=== PATIENT | male | born 1970 | race Hispanic/Latino ===

== ENCOUNTER 2017-05-29 19:55 | Inpatient (IN) | payer OTHER ==
[2017-05-29 20:31] LABS: Basophils % (Auto) 0.6 % (0.0-1.8); Eosinophils % (Auto) 1.3 % (0.0-4.3); Hematocrit 40.7 % (35.5-45.6); Hemoglobin 14.3 gm/dl (11.8-15.2); Mean Corpuscular HGB Conc 35 % (32-34); Mean Corpuscular Hemoglobin 31 pg (28-32); Mean Corpuscular Volume 88 fl (84-94); Platelet Count 226 K/mm3 (140-440); Red Blood Count 4.64 M/mm3 (3.65-5.03); White Blood Count 7.3 K/mm3 (4.5-11.0)
[2017-05-29] MEDS ORDERED: NITROSTAT SL ONE (20:50)
[2017-05-29] MEDS ORDERED: ZOFRAN IV ONE (20:51)
[2017-05-29] MEDS ORDERED: DILAUDID IV ONE (20:51)
[2017-05-29 20:52] LABS: Anion Gap 16 mmol/L; BUN/Creatinine Ratio 13.63; Blood Urea Nitrogen 15 mg/dL (9-20); Calcium 9.1 mg/dL (8.4-10.2); Carbon Dioxide 30 mmol/L (22-30); Chloride 102.7 mmol/L (98-107); Glucose 111 mg/dL (75-100); Potassium 3.3 mmol/L (3.6-5.0); Sodium 145 mmol/L (137-145)
--- NOTE | 2017-05-29 20:58 | XRay Report ---
FINAL REPORT EXAM: XR CHEST 1V AP HISTORY: cp COMPARISON: None available. FINDINGS: Frontal view(s) of the chest obtained. Cardiac silhouette within normal limits. No gross consolidation or effusion. No pneumothorax. IMPRESSION: No grossly acute findings.
[2017-05-29] MEDS ORDERED: NACL ONE (21:06)
[2017-05-29] MEDS: ASPIRIN PO SCH (21:43)
--- NOTE | 2017-05-29 21:46 | Cat Scan Report ---
FINAL REPORT EXAM: CT ANGIO CHEST HISTORY: chest pain COMPARISON: Chest x-ray from the same date. TECHNIQUE: Contiguous axial images were obtained. Additional sagittal and coronal reformatted images were obtained. Administration of IV contrast given per institution protocol. Images submitted for interpretation. 100 cc Omnipaque 350. Max intensity projection images. FINDINGS: Heart normal in size. Thoracic aorta normal in caliber. Mild calcification aortic arch. No dissection or rupture. No pulmonary embolus. No pathologically enlarged intrathoracic or axillary lymph nodes. Tracheobronchial tree is patent. Minimal linear scarring or atelectasis at the lung bases. Otherwise, no focal consolidation or effusion. Small hiatal hernia. Mild wall thickening the distal esophagus which may relate to its decompressed state. Mild degenerative changes of the thoracic spine. IMPRESSION: No pulmonary embolus. Minimal linear atelectasis or scarring at the lung bases. No dense consolidation or effusion. Small hiatal hernia. Mild wall thickening the distal esophagus which may relate to its decompressed state. Mild esophagitis could have a similar appearance.
--- NOTE | 2017-05-29 22:15 | Emergency Department Report ---
HPI - General Chief Complaint: Chest Pain Time Seen by Provider: 05/29/17 20:27 - HPI HPI: 46-year-old male presents to the ED with chest pain chest pain, onset 2 hour prior to evaluation while at rest, Location: mid chest Radiation: none, Severity now (0-10): 10, Severity at worst (0-10): 10 Duration : 5 minutes characterized as: Pressure. The pain is relieved with nothing, Patient denies exertional pain, patient denies pleuritic pain. Patient denies associated symptoms, such as nausea/vomiting, no diaphoresis, no shortness of breath. She would history of complicated medical issues such as pulmonary embolism, CAD status post interventions. ED Past Medical Hx - Past Medical History Hx Hypertension: Yes Hx Heart Attack/AMI: Yes Additional medical history: PE - Surgical History Past Surgical History?: No Additional Surgical History: elbow - Social History Smoking Status: Never Smoker Substance Use Type: None - Medications Home Medications: Home Medications Medication Instructions Recorded Confirmed Last Taken Type Aspirin [Aspirin TAB] 325 mg PO QDAY 05/29/17 05/29/17 Unknown History Chlorthalidone [Thalitone] 25 mg PO DAILY 05/29/17 05/29/17 Unknown History Metoprolol [Lopressor TAB] 50 mg PO DAILY 05/29/17 05/29/17 Unknown History NIFEdipine XL [Procardia Xl] 90 mg PO QDAY 05/29/17 05/29/17 Unknown History ED Review of Systems ROS: Stated complaint: CHEST PAIN Other details as noted in HPI Comment: All other systems reviewed and negative ENT: denies: ear pain, throat pain Respiratory: denies: cough, shortness of breath, wheezing Cardiovascular: chest pain Endocrine: no symptoms reported Gastrointestinal: as per HPI Physical Exam - Physical Exam Vital Signs: Vital Signs 05/29/17 05/29/17 05/29/17 20:04 20:37 20:38 Temperature 98.2 F 98.2 F Pulse Rate 76 64 Respiratory 22 20 20 Rate Blood Pressure 214/122 Blood Pressure 177/93 [Right] O2 Sat by Pulse 99 100 100 Oximetry 05/29/17 05/29/17 21:42 21:49 Temperature Pulse Rate 65 Respiratory 20 Rate Blood Pressure 177/93 Blood Pressure [Right] O2 Sat by Pulse Oximetry Physical Exam: Physical Exam: - General Limitations: No Limitations General appearance: alert, in no apparent distress. - Head Head exam: Present: atraumatic, normocephalic - Eye Eye exam: Present: normal appearance - ENT ENT exam: Present: mucous membranes moist - Neck Neck exam: Present: normal inspection - Respiratory Respiratory exam: Present: normal lung sounds bilaterally. Absent: respiratory distress - Cardiovascular Cardiovascular Exam: Present: normal rhythm, normal rate. Absent: systolic murmur, diastolic murmur, rubs, gallop - GI/Abdominal GI/Abdominal exam: Present: soft, normal bowel sounds - Extremities Exam Extremities exam: Present: normal inspection - Back Exam Back exam: Present: normal inspection - Neurological Exam Neurological exam: Present: alert, oriented X3 - Psychiatric Psychiatric exam: normal affect and mood - Skin Skin exam: Present: warm, dry, intact, normal color. Absent: rash ED Course Vital Signs 05/29/17 05/29/17 05/29/17 20:04 20:37 20:38 Temperature 98.2 F 98.2 F Pulse Rate 76 64 Respiratory 22 20 20 Rate Blood Pressure 214/122 Blood Pressure 177/93 [Right] O2 Sat by Pulse 99 100 100 Oximetry 05/29/17 05/29/17 21:42 21:49 Temperature Pulse Rate 65 Respiratory 20 Rate Blood Pressure 177/93 Blood Pressure [Right] O2 Sat by Pulse Oximetry ED Medical Decision Making - Lab Data Result diagrams: 05/29/17 20:17 05/29/17 20:17 Critical care attestation.: If time is entered above; I have spent that time in minutes in the direct care of this critically ill patient, excluding procedure time. ED Disposition Clinical Impression: Chest pain Qualifiers: Chest pain type: other chest pain Qualified Code(s): R07.89 - Other chest pain ; R07.8 - Other chest pain Disposition: OP ADMIT IP TO THIS HOSP Is pt being admited?: Yes Does the pt Need Aspirin: Yes Condition: Stable Instructions: Chest Pain (ED) Referrals: PRIMARY CARE,MD [Primary Care Provider] - 3-5 Days
[2017-05-29] MEDS ORDERED: MILK OF MAGNESIA PO PRN (23:10)
[2017-05-29] MEDS ORDERED: PERCOCET 5/325 PO PRN (23:10)
[2017-05-29] MEDS ORDERED: TYLENOL PO PRN (23:10)
[2017-05-29] MEDS ORDERED: ZOFRAN IV PRN (23:10)
[2017-05-29] MEDS ORDERED: DULCOLAX PR PRN (23:10)
[2017-05-29] MEDS ORDERED: SODIUM CHLORIDE FLUSH SYRINGE 10 ML IV PRN (23:10)
[2017-05-29] MEDS ORDERED: APRESOLINE IV PRN (23:13)
--- NOTE | 2017-05-29 23:20 | History and Physical Report ---
History of Present Illness Date of examination: 05/29/17 History of present illness: 46-year-old man with a history of hypertension, coronary artery disease comes emergency room complaining of chest pain. Pain is in the left chest, he stated he felt as if someone is sitting on his chest, constant, intensity 5/10, associated with left arm numbness, better with IV pain medication given in the emergency room. Admits to shortness of breath, no nausea vomiting, diaphoresis or palpitation. States his blood pressure was elevated at all with systolic of 214. Patient stated he was seen at [facility] 2 months ago, he has 8 she were on his long and it is growing 4 times the size. Stated he had a PET scan last year , the result was inconclusive. He was told he needed to have the mass removed Review Of Systems: Constitutional: no weight loss Ears, eyes, nose, mouth and throat: no nasal congestion, no nasal discharge, no sinus pressure, blurry vision, diplopia Neck: No neck pain or rigidity. Cardiovascular: no orthopnea, palpitations Respiratory: No shortness of breath, cough Gastrointestinal: abdominal pain, hematochezia Genitourinary : no dysuria, frequency , hematuria Musculoskeletal: no muscle ache Integumentary: no rash, no pruritis Neurological: no parathesias, focal weakness Endocrine: no cold or heat intolerance, no polyuria or polydipsia Hematologic/Lymphatic: no easy bruising, no easy bleeding, no gland swelling Allergic/Immunologic: no urticaria, no angioedema. PAST MEDICAL HISTORY:hypertension, coronary artery disease PAST SURGICAL HISTORY: Elbow and leg surgery FAMILY HISTORY: Hypertension SOCIAL HISTORY: Denies alcohol, tobacco, drugs Medications and Allergies Allergies Allergy/AdvReac Type Severity Reaction Status Date / Time lisinopril Allergy Shortness Verified 05/29/17 20:04 of Breath Home Medications Medication Instructions Recorded Confirmed Last Taken Type Aspirin [Aspirin TAB] 325 mg PO QDAY 05/29/17 05/29/17 Unknown History Chlorthalidone [Thalitone] 25 mg PO DAILY 05/29/17 05/29/17 Unknown History Metoprolol [Lopressor TAB] 50 mg PO DAILY 05/29/17 05/29/17 Unknown History NIFEdipine XL [Procardia Xl] 90 mg PO QDAY 05/29/17 05/29/17 Unknown History Active Meds: Active Medications Acetaminophen (Tylenol) 650 mg PO Q4H PRN PRN Reason: Pain MILD(1-3)/Fever >100.5/PATEL Aspirin (Aspirin) 325 mg PO QDAY [facility] Last Admin: 05/29/17 21:43 Dose: 325 mg Aspirin (Aspirin) 325 mg PO QDAY [facility] Bisacodyl (Dulcolax) 10 mg DE QDAY PRN PRN Reason: Constipation unrelieved by MOM Chlorthalidone (Thalitone) 25 mg PO DAILY [facility] Hydralazine HCl (Apresoline) 5 mg IV Q6HR PRN PRN Reason: Hypertension Magnesium Hydroxide (Milk Of Magnesia) 30 ml PO Q4H PRN PRN Reason: Constipation Metoprolol Tartrate (Lopressor) 50 mg PO DAILY [facility] Nifedipine (Procardia Xl) 90 mg PO QDAY [facility] Ondansetron HCl (Zofran) 4 mg IV Q8H PRN PRN Reason: N/V unrelieved by Reglan Oxycodone/Acetaminophen (Percocet 5/325) 1 tab PO Q4H PRN PRN Reason: Pain, Moderate (4-6) Sodium Chloride (Sodium Chloride Flush Syringe 10 Ml) 10 ml IV PRN PRN PRN Reason: LINE FLUSH Exam - Physical Exam Narrative exam: Gen. appearance: Patient lying in bed in no acute distress HEENT: Normocephalic/atraumatic, pupils equal round reactive to light, extra alkaline movement intact, no scleral icterus, no JVD or thyromegaly or nodule, neck is supple, mucous membrane moist, no erythema or exudate Heart: S1-S2, regular rate and rhythm Lungs: Clear to auscultation bilateral breathing comfortable Abdomen: Positive bowel sounds, nontender, nondistended, no organomegaly Extremities: No edema, cyanosis, clubbing Neuro:: Oriented 3 , cranial nerves II-12 intact, speech, motor intact Skin: No rash, nodules, warm dry - Constitutional Vitals: Temp Pulse Resp BP Pulse Ox 98.2 F 65 20 177/93 100 05/29/17 20:37 05/29/17 21:49 05/29/17 21:42 05/29/17 21:49 05/29/17 20:38 Results - Labs CBC & Chem 7: 05/29/17 20:17 05/29/17 20:17 Labs: Abnormal lab results 05/29/17 05/29/17 Range/Units 20:17 20:17 MCHC 35 H (32-34) % RDW 13.0 L (13.2-15.2) % [place] % (Auto) 7.5 H (0.0-7.3) % Potassium 3.3 L (3.6-5.0) mmol/L Glucose 111 H (75-100) mg/dL - Imaging and Cardiology EKG: image reviewed Chest x-ray: image reviewed CT scan - chest: report reviewed Assessment and Plan Assessment Unstable angina Coronary artery disease Hypertension uncontrolled ? Lung mass, none on CT done here Plan Admit medicine Check cardiac enzymes, obtain stress test, Percocet for pain Obtain medical records from [facility] Continue appropriate outpatient medication, start IV hydralazine as needed for blood pressure control start dvt Prophylaxis
[2017-05-29 23:49] LABS: Anion Gap 14 mmol/L; BUN/Creatinine Ratio 13.63; Blood Urea Nitrogen 15 mg/dL (9-20); Carbon Dioxide 30 mmol/L (22-30); Glucose 104 mg/dL (75-100); Hematocrit 39.8 % (35.5-45.6); Hemoglobin 13.7 gm/dl (11.8-15.2); Mean Corpuscular HGB Conc 34 % (32-34); Mean Corpuscular Hemoglobin 30 pg (28-32); Mean Corpuscular Volume 88 fl (84-94); Platelet Count 217 K/mm3 (140-440); Potassium 3.9 mmol/L (3.6-5.0); Red Blood Count 4.51 M/mm3 (3.65-5.03); Sodium 143 mmol/L (137-145); White Blood Count 7.3 K/mm3 (4.5-11.0)
[2017-05-30 00:22] LABS: Diff Status Complete; Eosinophils % (Auto) 1.6 % (0.0-4.3)
[2017-05-30] MEDS: PROTONIX PO SCH ×2 (00:32→13:43)
--- NOTE | 2017-05-30 03:06 | Admit Criteria Form ---
Admission Criteria Documentation: CARDIOLOGY GRG Clinical Indications for Admission to Inpatient Care ([place]/check or initial the applicable condition/criteria) Hospital admission is needed for appropriate care of the patient because of ANY ONE of the following: [ ] I. Hemodynamic instability as indicated by ALL of the following (1)(2)(3) (4)(5)(6)(7)(8)(9)(10) [ ]a) Vital sign abnormality not readily corrected by appropriate treatment with 12-24 hours for ANY ONE: [ ]i) Hypotension that persists despite appropriate treatment (eg, volume repletion) [ ]ii) Tachycardiathat persists despite appropriate tx ( e.g., analgesia, fluids, sedation as indicated [ ]iii) Orthostatic vital sign changes that persists despite appropriate treatment (eg, volume repletion) [ ]b) Vital sign abnormailty that is severe indicated by ANY ONE of the following: [ ]i) Inadequate perfusion indicated by ANY ONE of the following: [ ] 1) Lactic acidosis (> 2 mmol/L) [ ] 2) New abnormal capillary refill (> 3 seconds) [ ] 3) Reduced urine output [ ] 4) New altered mental status [ ] 5) Myocardial Ischemia [ ] 6) Other metabolic acidosis (arterial pH <7.35 ) not otherwise explained. [ ]ii) Mean arterial pressure[A] less than 60 mm Hg [ ]iii) Mean arterial pressure[A] less than 70 mm Hg after 30 minutes of appropriate treatment (eg, fluid resuscitation) [ ]iv) Sustained heart rate greater than 120 beats per minute in adult or child 6 years or older[B] [ ]v) IV inotropic or vasopressor medication required to maintain adequate blood pressure or perfusion [ ] II. Severe heart failure as indicated by ANY ONE of the following(17)(18) [ ]a) Respiratory distress [ ]b) Hypotension [ ]c) Debilitating anasarca refractory to therapy (eg, tissue breakdown with infection)[C](19) [ ]d) Cardiac arrhythmias of immediate concern [ ]e) Myocardial ischemia [ ] III. Cardiac arrhythmias or findings of immediate concern indicated by ANY ONE of the following (21)(22): [ ] a) Heart rhythms that are inherently dangerous or unstable indicated by ANY ONE of the following (23)(24)(25): [ ] i) Resuscitated ventricular fibrillation or cardiac arrest [ ] ii) Ventricular escape rhythm [ ] iii) Sustained ventricular tachycardia (30 seconds or more of ventricular rhythm at greater than 100 beats per minute) [ ] iv) Nonsustained ventricular tachycardia and ANY ONE of the following: [ ] 1) Suspected cardiac ischemia as cause or consequence of ventricular tachycardia [ ] 2) Acute myocarditis [ ] b) Unstable cardiac conduction defects indicated by ANY ONE of the following(25)(26)(27) [ ] i) Type II second-degree atrioventricular block [ ]ii) Third-degree atrioventricular block [ ]iii) New-onset left bundle branch block with suspected myocardial ischemia [ ]c) Any heart rhythm and ANY ONE of the following (23)(24)(28)(29) (30) [ ] i) Continuous long-term ECG monitoring needed (e.g., initiation of drug requiring monitoring for more than 24 hours) [ ] ii) Patient has automatic implanted cardioverter defibrillator that is repeatedly firing, malfunctioning, or in need of immediate adjustment of settings beyond the scope of ambulatory or observation care [ ]d) Heart rhythms of concern due to ANY ONE of the following: [ ] i) Hypotension [ ] ii) Respiratory distress [ ] iii) Association with other significant symptoms (e.g., bradycardia with syncope or ongoing dizziness, supraventricular tachycardia with chest pain (28)(29)(31) [ ] IV. Monitoring for cardiac contusion beyond the scope of observation care needed [A](32)(33)(34) [ ] V. Surgical or device complication (e.g., valve replacement complication , ICD disfunction or pacemaker dysfunction) (49)(50)(51)(52)(53)(54) [ ] . Inpatient palliative care needed. [F](51)(52) Also use Inpatient Palliative Care Criteria [ ] VII. Nonbacterial thrombotic (marantic) endocarditis(43)(44)(55)(56)(57) [X] VIII. Cardiology condition, symptom, or finding for which emergency and observation care has failed or are not considered appropriate. [ ] IX. Acute valvular disease requiring inpatient as indicated by ANY ONE of the following (40)(41) [ ]a) Acute valvular regurgitation (42) [ ]b) Noninfectious valvulitis (43)(44) [ ]c) Obstructive valve thrombosis (45)(46) [ ]d) Paravalvular leak(47)(48) [ ]e) Other significant valvular disorder remaining after emergency or observation level of care (as appropriate) [ ]X. Pericardial disease requiring inpatient treatment as indicated by ANY ONE of the following (35)(36)(37)(38) [ ]a) Suspected tamponade [ ]b) Hemopericardium [ ]c) Other significant pericardial disorder remaining after emergency or observation level of care (as appropriate)(39) [ ] XI. Cardiac ischemia beyond scope of emergency and observation care. [ ] XII. Cyanotic heart disease requiring inpatient care as indicated by 1 or more of the following(58)(59)(60): [ ]a) Acute onset of hypoxemia [ ]b) Exacerbation [ ] XIII. Hypertension requiring inpatient treatment as indicated by ANYONE of the following(11)(12)(13)(14): [ ]a) Severe hypertension (SBP greater than 180 mm Hg or DBP greater than 110 mm Hg, or greater than the 95th percentile for age, gender, and height in pediatric patients) that cannot be controlled (eg, to SBP less than 160 mm Hg and DBP less than 100 mm Hg) by emergency department or observation care treatment(15) [ ]b) Acute end organ damage secondary to hypertension (SBP greater than 140 mm Hg or DBP greater than 90 mm Hg) as indicated by ANYONE of the following: [ ] i) Hypertensive encephalopathy (eg, Altered mental status)(16) [ ] ii) Cerebral infarction [ ] iii) Intracranial hemorrhage [ ] iv) Myocardial ischemia or infarction [ ] v) Heart failure (eg, pulmonary edema) [ ] vi) Aortic dissection [ ] vii) Increased creatinine (new) with reduction of more than 50% in estimated glomerular filtration rate from baseline [ ] viii) Papilledema [ ] ix) Retinal hemorrhage [ ] x) Microangiopathic hemolytic anemia [ ] xi) Seizure [ ] xii) Other significant finding secondary to hypertension [ ] XIV. Complications of transplanted heart indicated by ANY ONE of the following(61): [ ]a) Acute graft rejection requiring inpatient management (eg, intravenous imunosuppression)(62)(63) [ ]b) Acute graft heart failure indicated by ANY ONE of the following(64): [ ] i) Hemodynamic instability [ ] ii) Cardiac arrhythmias of immediate concern [ ] iii) Pulmonary edema that is very severe (eg, mechanical ventilation needed, imminent or likely, need for 100% oxygen to keep oxygen saturation above 90%) [ ] iv) Pulmonary edema that is persistent as indicated by ALL of the following: [ ] 1) New need for oxygen therapy to keep oxygen saturation above 90 % (or increased FiO2 need from baseline) [ ] 2) Has not improved sufficiently with emergency department or observation care IV diuretics or other heart failure treatments[E]. [ ] iv) Altered mental status that is severe or persistent [ ] iv) Increased creatinine (new on laboratory test) with reduction of more than 50% in estimated glomerular filtration rate from baseline [ ] iv) Progressively (ongoing) rising creatinine (known from past laboratory test) with reduction of more than 25% in estimated glomerular filtration rate from baseline [ ] iv) Acute renal failure [ ] iv) Acute peripheral ischemia (eg, examination shows pulseless, cool, mottled, or cyanotic extremity) [ ] iv) Pulmonary artery catheter monitoring needed [ ] iv) Other sign or symptom of heart failure requiring inpatient treatment (ie, too severe or not responsive to outpatient and observation care treatment) [ ]c) Infection requiring inpatient management (eg, Hemodynamic instability, need for intravenous antimicrobial treatment)(66)(67)(68)(69)(70) [ ]d) Cardiac allograft vasculopathy requiring inpatient management (eg evidence of cardiacischemia)(71) [ ]e) Other complication of transplanted heart (eg, stroke, severe pulmonary hypertension, severe valvular dysfunction) requiring inpatient management(72) The original [employer] content created by [employer] has been revised. The portions of the content which have been revised are identified through the use of italic text or in bold, and [facility] has neither reviewed nor approved the modified material. All other unmodified content is copyright [employer]. Please see references footnoted in the original [employer] edition 2017 Admission Criteria Met: Yes
[2017-05-30 06:00] LABS: Basophils % (Auto) 0.8 % (0.0-1.8); Eosinophils % (Auto) 2.2 % (0.0-4.3); Hematocrit 40.4 % (35.5-45.6); Hemoglobin 14.1 gm/dl (11.8-15.2); Mean Corpuscular HGB Conc 35 % (32-34); Mean Corpuscular Hemoglobin 31 pg (28-32); Mean Corpuscular Volume 88 fl (84-94); Platelet Count 218 K/mm3 (140-440); Red Blood Count 4.59 M/mm3 (3.65-5.03); Red Cell Distribution Width 12.9 % (13.2-15.2); White Blood Count 6.4 K/mm3 (4.5-11.0)
[2017-05-30 06:24] LABS: Anion Gap 17 mmol/L; BUN/Creatinine Ratio 17.77; Blood Urea Nitrogen 16 mg/dL (9-20); Calcium 8.8 mg/dL (8.4-10.2); Carbon Dioxide 27 mmol/L (22-30); Chloride 102.5 mmol/L (98-107); Glucose 91 mg/dL (75-100); Potassium 3.8 mmol/L (3.6-5.0); Sodium 143 mmol/L (137-145)
[2017-05-30] MEDS: LOPRESSOR PO SCH (08:32)
[2017-05-30] MEDS: ASPIRIN PO SCH ×3 (08:33→13:43)
[2017-05-30] MEDS: THALITONE PO SCH ×2 (08:34→13:43)
[2017-05-30] MEDS: PROCARDIA XL PO SCH (08:34)
[2017-05-30] MEDS ORDERED: LEXISCAN IV ONE ×2 (09:48→09:50)
[2017-05-30] MEDS ORDERED: ASPIRIN PO SCH (10:00)
--- NOTE | 2017-05-30 12:00 | Progress Note ---
Assessment and Plan Assessment and plan: 46-year-old man with a past medical history of hypertension, coronary artery disease who presented with left-sided chest pain. Chest pain Likely due to hypertensive urgency, follow-up stress test, ACS ruled out, chest x-ray and CT negative, cardiology consult pending CAD, hx of [place] x2 in the past -denies hx of stent or cabg Optimize medications Hypertensive urgency Optimize BP meds Hx of PE CTA chest negative for PE obtain LE dopplers History of lung mass per patient, it was a subcentimeter "spot" seen at OSH As per patient's he had repeat imaging and has not resolved. CT of his chest done here is negative for any lung mass. No further workup DVT prophylaxis Lovenox History Interval history: Chest pain has now resolved. Nurses are reporting that he still has elevated blood pressures Hospitalist Physical - Physical exam Narrative exam: General.: Appears well, no distress, nontoxic HEENT: Moist mucous membranes, extraocular muscles intact, no lymphadenopathy Neck: supple Cardiac: S1-S2 heard Lungs: clear to auscultation bilaterally Abdomen: soft , nontender, nondistended, bowel sounds positive Extremities: no edema clubbing or cyanosis Skin: no rash or lesions Neurologic: no gross focal deficits Psych: appropriate behavior, appropriate mood, corporative, judgment intact - Constitutional Vitals: Temp Pulse Resp BP Pulse Ox 98.2 F 58 L 16 173/98 95 05/30/17 04:40 05/30/17 08:32 05/30/17 04:40 05/30/17 04:40 05/30/17 07:48 Results - Labs CBC & Chem 7: 05/30/17 05:05 05/30/17 05:05 Labs: Laboratory Last Values WBC 6.4 K/mm3 (4.5-11.0) 05/30/17 05:05 RBC 4.59 M/mm3 (3.65-5.03) 05/30/17 05:05 Hgb 14.1 gm/dl (11.8-15.2) 05/30/17 05:05 Hct 40.4 % (35.5-45.6) 05/30/17 05:05 MCV 88 fl (84-94) 05/30/17 05:05 MCH 31 pg (28-32) 05/30/17 05:05 MCHC 35 % (32-34) H 05/30/17 05:05 RDW 12.9 % (13.2-15.2) L 05/30/17 05:05 Plt Count 218 K/mm3 (140-440) 05/30/17 05:05 Lymph % (Auto) 32.2 % (13.4-35.0) 05/30/17 05:05 [place] % (Auto) 8.5 % (0.0-7.3) H 05/30/17 05:05 Eos % (Auto) 2.2 % (0.0-4.3) 05/30/17 05:05 Baso % (Auto) 0.8 % (0.0-1.8) 05/30/17 05:05 Lymph # 2.1 K/mm3 (1.2-5.4) 05/30/17 05:05 [place] # 0.5 K/mm3 (0.0-0.8) 05/30/17 05:05 Eos # 0.1 K/mm3 (0.0-0.4) 05/30/17 05:05 Baso # 0.1 K/mm3 (0.0-0.1) 05/30/17 05:05 Add Manual Diff Complete 05/29/17 23:20 Seg Neutrophils % 56.3 % (40.0-70.0) 05/30/17 05:05 Seg Neutrophils # 3.6 K/mm3 (1.8-7.7) 05/30/17 05:05 D-Dimer 156.08 ng/mlDDU (0-234) 05/29/17 20:56 Sodium 143 mmol/L (137-145) 05/30/17 05:05 Potassium 3.8 mmol/L (3.6-5.0) 05/30/17 05:05 Chloride 102.5 mmol/L (98-107) 05/30/17 05:05 Carbon Dioxide 27 mmol/L (22-30) 05/30/17 05:05 Anion Gap 17 mmol/L 05/30/17 05:05 BUN 16 mg/dL (9-20) 05/30/17 05:05 Creatinine 0.9 mg/dL (0.8-1.5) 05/30/17 05:05 Estimated GFR > 60 ml/min 05/30/17 05:05 BUN/Creatinine Ratio 17.77 % 05/30/17 05:05 Glucose 91 mg/dL (75-100) 05/30/17 05:05 Calcium 8.8 mg/dL (8.4-10.2) 05/30/17 05:05 Troponin T < 0.010 ng/mL (0.00-0.029) 05/30/17 05:05
[2017-05-30] MEDS ORDERED: APRESOLINE IV PRN (18:00)
[2017-05-30] MEDS ORDERED: LOVENOX SUB-Q SCH (22:00)
--- NOTE | 2017-05-31 04:01 | Treadmill Report ---
THALLIUM STRESS TEST LEFT VENTRICLE: Left ventricular chamber size is within normal spread. Perfusion study demonstrates a small fixed basal inferior defect with no reversibility on the resting study. Gated analysis demonstrates normal left ventricular systolic function, ejection fraction of 61%. CONCLUSION: Small fixed basal inferior defect likely due to diaphragmatic attenuation artifact. Cannot exclude a small prior basal inferior infarct. There is no reversible ischemia demonstrated on this study. Clinical correlation is recommended. [facility]# [id number] [place]/NTS
[2017-05-31] MEDS: ASPIRIN PO SCH (09:49)
[2017-05-31] MEDS: PROCARDIA XL PO SCH ×3 (09:50→11:02)
[2017-05-31] MEDS: THALITONE PO SCH (09:50)
[2017-05-31] MEDS: PROTONIX PO SCH (09:50)
[2017-05-31] MEDS: COREG PO SCH ×2 (09:50→11:01)
[2017-05-31] MEDS: LOPRESSOR PO SCH (11:02)
[2017-05-31 12:22] VITALS: BP 138/91
--- NOTE | 2017-05-31 13:38 | Progress Note ---
Assessment and Plan Assessment and plan: Patient is a 46-year-old man with a past medical history of hypertension, coronary artery disease, acute IA 2 and PE who presented with left-sided chest pain. Chest pain, most likely GERD related Treatment PPI Likely due to hypertensive urgency, follow-up stress test done, await cardiology consultation for discharge clearance, ACS ruled out, chest x-ray and CT negative, CAD, hx of IA x2 in the past -denies hx of stent or cabg Optimize medications Hypertensive urgency Optimize BP meds Hx of PE CTA chest negative for PE obtain LE dopplers-negative History of lung mass per patient, it was a subcentimeter "spot" seen at OSH As per patient's he had repeat imaging and has not resolved. CT of his chest done here is negative for any lung mass. No further workup DVT prophylaxis Lovenox History Interval history: Patient was seen and examined. Follow-up on current diagnosis/chest pain. Overnight uneventful. Patient denies any chest pain, shortness breath, nausea/ vomiting or severe headaches. Imaging, nursing note, chart, labs and old chart reviewed. Discussed with patient. Hospitalist Physical - Physical exam Narrative exam: GEN: WDWN, NAD, AWAKE, ALERT, ORIENTATED 3 HEENT: NCAT, EOMI, PERRL, OP Clear NECK: supple, no adenopathy, no thyromegaly, no JVD CVS/HEART: RRR, NORMAL S1S2, NO JVD, pulses present bilaterally CHEST/LUNGS: CTA B, Symmetrical chest expansion, good air entry bilaterally GI/Abdomen: soft, NTND, good bowel sounds, no guarding or rebound /Bladder: no suprapubic tenderness, no CVA or paraspinal tenderness EXT/Skin: no c/c/e, no significant edema or obvious rash MSK: FROM x 4 Neuro: CN 2-12 grossly intact, no new focal deficits Psych: calm - Constitutional Vitals: Temp Pulse Resp BP Pulse Ox 98.6 F 77 16 138/91 96 05/31/17 12:20 05/31/17 12:20 05/31/17 12:20 05/31/17 12:20 05/31/17 12:20 Results - Labs CBC & Chem 7: 05/30/17 05:05 05/30/17 05:05 Labs: Laboratory Last Values WBC 6.4 K/mm3 (4.5-11.0) 05/30/17 05:05 RBC 4.59 M/mm3 (3.65-5.03) 05/30/17 05:05 Hgb 14.1 gm/dl (11.8-15.2) 05/30/17 05:05 Hct 40.4 % (35.5-45.6) 05/30/17 05:05 MCV 88 fl (84-94) 05/30/17 05:05 MCH 31 pg (28-32) 05/30/17 05:05 MCHC 35 % (32-34) H 05/30/17 05:05 RDW 12.9 % (13.2-15.2) L 05/30/17 05:05 Plt Count 218 K/mm3 (140-440) 05/30/17 05:05 Lymph % (Auto) 32.2 % (13.4-35.0) 05/30/17 05:05 [place] % (Auto) 8.5 % (0.0-7.3) H 05/30/17 05:05 Eos % (Auto) 2.2 % (0.0-4.3) 05/30/17 05:05 Baso % (Auto) 0.8 % (0.0-1.8) 05/30/17 05:05 Lymph # 2.1 K/mm3 (1.2-5.4) 05/30/17 05:05 [place] # 0.5 K/mm3 (0.0-0.8) 05/30/17 05:05 Eos # 0.1 K/mm3 (0.0-0.4) 05/30/17 05:05 Baso # 0.1 K/mm3 (0.0-0.1) 05/30/17 05:05 Add Manual Diff Complete 05/29/17 23:20 Seg Neutrophils % 56.3 % (40.0-70.0) 05/30/17 05:05 Seg Neutrophils # 3.6 K/mm3 (1.8-7.7) 05/30/17 05:05 D-Dimer 156.08 ng/mlDDU (0-234) 05/29/17 20:56 Sodium 143 mmol/L (137-145) 05/30/17 05:05 Potassium 3.8 mmol/L (3.6-5.0) 05/30/17 05:05 Chloride 102.5 mmol/L (98-107) 05/30/17 05:05 Carbon Dioxide 27 mmol/L (22-30) 05/30/17 05:05 Anion Gap 17 mmol/L 05/30/17 05:05 BUN 16 mg/dL (9-20) 05/30/17 05:05 Creatinine 0.9 mg/dL (0.8-1.5) 05/30/17 05:05 Estimated GFR > 60 ml/min 05/30/17 05:05 BUN/Creatinine Ratio 17.77 % 05/30/17 05:05 Glucose 91 mg/dL (75-100) 05/30/17 05:05 POC Glucose 88 (70-105) 05/31/17 08:10 Calcium 8.8 mg/dL (8.4-10.2) 05/30/17 05:05 Troponin T < 0.010 ng/mL (0.00-0.029) 05/30/17 05:05
--- NOTE | 2017-05-31 14:17 | Consultation ---
History of Present Illness Consult date: 05/31/17 Consult reason: chest pain History of present illness: Patient is a 46-year-old man who presented to the hospital with chest pain. His chest wall was atypical, nonexertional left-sided chest pain, which is stabbing in character and not radiating. No associated symptoms. Serial ECGs were benign, cardiac enzymes negative, and a Persantine thallium stress test done revealed a small fixed basal inferior defect with no ischemia. The defect appeared consistent with diaphragmatic attenuation artifact. The patient exercises regularly, works out daily and has never experienced chest pain or exercise intolerance. He has had chest pain workup in the past most significantly 5 years ago. On presentation to another hospital with chest pain, he states he was taken to the cardiac catheterization laboratory, where there was no coronary artery disease and he was subsequently found with acute pulmonary embolism. He was treated with Coumadin for 6 months following that. Since then has been no further cardiac symptoms or recurrent pulmonary embolism. Comorbidities include labile hypertension. On this presentation, he also had CT of the chest which was negative for pulmonary embolism. Past History Past Medical History: hypertension, other (pulmonary embolism) Medications and Allergies Allergies Allergy/AdvReac Type Severity Reaction Status Date / Time lisinopril Allergy Shortness Verified 05/29/17 20:04 of Breath Home Medications Medication Instructions Recorded Confirmed Last Taken Type Aspirin [Aspirin TAB] 325 mg PO QDAY 05/29/17 05/29/17 Unknown History Chlorthalidone [Thalitone] 25 mg PO DAILY 05/29/17 05/29/17 Unknown History Metoprolol [Lopressor TAB] 50 mg PO DAILY 05/29/17 05/29/17 Unknown History NIFEdipine XL [Procardia Xl] 90 mg PO QDAY 05/29/17 05/29/17 Unknown History Active Meds: Active Medications Acetaminophen (Tylenol) 650 mg PO Q4H PRN PRN Reason: Pain MILD(1-3)/Fever >100.5/PATEL Aspirin (Aspirin) 325 mg PO QDAY [facility] Last Admin: 05/31/17 09:49 Dose: 325 mg Bisacodyl (Dulcolax) 10 mg ME QDAY PRN PRN Reason: Constipation unrelieved by MOM Carvedilol (Coreg) 6.25 mg PO BID [facility] Last Admin: 05/31/17 11:01 Dose: Not Given Chlorthalidone (Thalitone) 25 mg PO DAILY [facility] Last Admin: 05/31/17 09:50 Dose: 25 mg Enoxaparin Sodium (Lovenox) 40 mg SUB-Q QDAY@2200 [facility] Last Admin: 05/31/17 11:01 Dose: Not Given Hydralazine HCl (Apresoline) 10 mg IV Q4HR PRN PRN Reason: BP >160/100 Magnesium Hydroxide (Milk Of Magnesia) 30 ml PO Q4H PRN PRN Reason: Constipation Nifedipine (Procardia Xl) 60 mg PO Q12HR [facility] Last Admin: 05/31/17 11:01 Dose: Not Given Ondansetron HCl (Zofran) 4 mg IV Q8H PRN PRN Reason: N/V unrelieved by Reglan Oxycodone/Acetaminophen (Percocet 5/325) 1 tab PO Q4H PRN PRN Reason: Pain, Moderate (4-6) Last Admin: 05/31/17 09:49 Dose: 1 tab Pantoprazole Sodium (Protonix) 40 mg PO QDAY [facility] Last Admin: 05/31/17 09:50 Dose: 40 mg Sodium Chloride (Sodium Chloride Flush Syringe 10 Ml) 10 ml IV PRN PRN PRN Reason: LINE FLUSH Review of Systems Cardiovascular: chest pain, no orthopnea, no palpitations, no rapid/irregular heart beat, no edema, no syncope, no lightheadedness, no shortness of breath Physical Examination Vital Signs Temp Pulse Resp BP Pulse Ox 98.2 F 76 22 214/122 99 05/29/17 20:04 05/29/17 20:04 05/29/17 20:04 05/29/17 20:04 05/29/17 20:04 General appearance: no acute distress HEENT: Positive: PERRL Neck: Positive: neck supple Cardiac: Positive: Reg Rate and Rhythm Lungs: Positive: Decreased Breath Sounds Neuro: Positive: Grossly Intact Abdomen: Positive: Soft Male genitourinary: Positive: deferred Skin: Positive: Clear Extremities: Absent: edema Results 05/30/17 05:05 05/30/17 05:05 EKG interpretations - Telemetry EKG Rhythm: Sinus Rhythm Assessment and Plan - Patient Problems (1) Chest pain Current Visit: Yes Status: Acute Qualifiers: Chest pain type: other chest pain Ischemic chest pain type: I Qualified Code(s): R07.89 - Other chest pain; R07.8 - Other chest pain Plan to address problem: Patient with atypical chest pain, has undergone extensive cardiac workup including serial enzymes, serial ECGs and a thallium stress test which was negative for ischemia. No further cardiac ischemic workup is indicated.
--- NOTE | 2017-06-01 13:55 | Vascular Lab Report ---
LOWER EXTREMITY VENOUS DUPLEX: REASON FOR EXAM: Edema of the lower extremities. COMMENTS ON THE RIGHT: All veins visualized are freely compressible without evidence of internal echogenicity. Flow is spontaneous and phasic throughout. COMMENTS ON THE LEFT: All veins visualized are freely compressible without evidence of internal echogenicity. Flow is spontaneous and phasic throughout. IMPRESSION: No evidence of acute or chronic deep venous thrombosis in either lower extremity.
== END 2017-05-31 16:45 | disposition home or self-care (01) | DRG 392 ==
LOC: ED 19:55 → 4A 23:10
PROVIDERS: ADMIT Internal Medicine; ATTEND Internal Medicine
DX: K21.9 Gastro-esophageal reflux disease without esophagitis (principal); I10 Essential (primary) hypertension; I25.2 Old myocardial infarction; Z79.82 Long term (current) use of aspirin; I25.10 Atherosclerotic heart disease of native coronary artery without angina pectoris; Z88.8 Allergy status to other drugs, medicaments and biological substances; Z82.49 Family history of ischemic heart disease and other diseases of the circulatory system; I16.0 Hypertensive urgency
CPT/HCPCS: 36415; 71010; 71275; 78452; 80048; 82962; 84484; 85025; 85379; 93005; 93010; 93017; 93970; 96374; 96375; A9502; J1170; J1650; J2405; J2785; Q9967